=== PATIENT | female | born 1990 | race Caucasian/White ===

== ENCOUNTER 2020-12-24 01:29 | Emergency (ER) | payer OTHER, SELFPAY ==
--- NOTE | ~2020-12-24 | CT_ITS ---
EXAMINATION: CT abdomen pelvis w con EXAM DATE: 12/24/2020 03:31 INDICATION: Epigastric pain. Vomiting. TECHNIQUE: Spiral CT of the abdomen and pelvis was performed following intravenous injection of 100 m L Omnipaque 350. Axial, coronal and sagittal images of the abdomen and pelvis were reviewed. The do se-length product (DLP) for this examination was 506.51 mGy-cm. The exposure was tailored according to patient size (auto mA exposure control), and iterative reconstruction (ASIR) was used as additiona l dose reduction technique. There is no prior study for comparison. FINDINGS: The liver, spleen, adrenal glands and pancreas are unremarkable. There are gallstones with in an otherwise unremarkable gallbladder. Common bile duct upper limits of normal in size. No intrahe patic biliary duct dilation. Portal and splenic veins are patent. Kidneys enhance symmetrically. T here is no hydronephrosis. Right ovary has a 4.4 cm cystic lesion likely physiologic or hemorrhagic cyst. Uterus is unremarkable. The bladder is unremarkable. There is no retroperitoneal or pelvic l ymphadenopathy. There are no findings to suggest appendicitis. Mild edema of the distal esophageal wall could be eso phagitis. There is expected amount of colonic stool. No free intraperitoneal gas. The heart is n ormal in size. There are no pericardial or pleural effusions. There is left lower lobe granuloma. There are no osteoblastic or osteolytic lesions identified. IMPRESSION: 1. Right ovarian cystic lesion likely hemorrhagic or physiologic follicle. 2. Cholelithiasis. 3. Possible esophagitis Reviewed, dictated and finalized at location G.
[2020-12-24 01:33] VITALS: BP 141/94; PULSE 85; RESP 16; TEMP 36.1; O2SAT 100
--- NOTE | 2020-12-24 01:56 | ED.GENADULT ---
HPI - General Adult General Chief complaint: Abdominal Pain Stated complaint: abd pain Time Seen by Provider: 12/24/20 01:45 History of Present Illness HPI narrative: Patient 30-year-old female presents the emergency department with chief complaint of abdominal pain nausea and vomiting. Patient reports that she has history of problems with her gallbladder and reports that this evening she ate some ribs and then started having epigastric discomfort and had several episodes of vomiting. Patient states that symptoms are improved after she vomited in the emergency department denies fever or chills patient denies prior abdominal surgery. Review of Systems Review of Systems: A 10 system review of systems was completed on the patient and is negative except for what is stated in the HPI. Nursing and ancillary documentation was reviewed. Exam Narrative: GENERAL: Well-appearing, well-nourished, and in no acute distress. HEAD: Normocephalic, atraumatic. EYES: PERRLA and EOMI. ENT: Nares clear, no rhinorrhea or epistaxis. Mucous membranes moist. NECK: Supple. CHEST: Clear to auscultation. No respiratory distress. HEART: Regular rate and rhythm. No murmur heard. Normal peripheral pulses. ABDOMEN: Soft, tender to palpation in the epigastric region, nondistended, normal active bowel sounds. EXTREMITIES: Normal range of motion. No edema. SKIN: Warm, dry, no rash. NEURO: No focal deficits. Alert and oriented x3. PSYCH: Normal mood and affect. Course Vital Signs Vital signs: Vital Signs Temperature 36.1 C L 12/24/20 01:33 Pulse Rate 85 12/24/20 01:33 Respiratory Rate 16 12/24/20 01:33 Blood Pressure 141/94 H 12/24/20 01:33 Pulse Oximetry 100 12/24/20 01:33 Temperature 36.1 C L 12/24/20 01:33 Pulse Rate 68 12/24/20 05:03 Respiratory Rate 18 12/24/20 05:03 Blood Pressure 108/70 12/24/20 05:03 Pulse Oximetry 100 12/24/20 05:03 Medical Decision Making Vital Signs Vital Signs: Vital Signs Temperature 36.1 C L 12/24/20 01:33 Pulse Rate 85 12/24/20 01:33 Respiratory Rate 16 12/24/20 01:33 Blood Pressure 141/94 H 12/24/20 01:33 Pulse Oximetry 100 12/24/20 01:33 Temperature 36.1 C L 12/24/20 01:33 Pulse Rate 68 12/24/20 05:03 Respiratory Rate 18 12/24/20 05:03 Blood Pressure 108/70 12/24/20 05:03 Pulse Oximetry 100 12/24/20 05:03 Lab Data Result diagrams: 12/24/20 02:07 12/24/20 02:07 Labs: Lab Results 12/24/20 12/24/20 12/24/20 Range/Units 02:07 02:07 02:07 WBC 13.0 H (4.5-10.0) K/mm3 RBC 4.38 (4.2-5.4) M/mm3 Hgb 13.4 (12.0-15.0) g/dL Hct 39.5 (37.0-47.0) % MCV 90.2 (80-100) fl MCH 30.6 (26-34) pg MCHC 33.9 (32-36) g/dl RDW 10.9 L (11.5-14.5) % Plt Count 252 (150-375) k/mm3 MPV 9.7 (7.4-10.4) fl Immature Gran % (Auto) 0.2 (0-0.5) % Neut % (Auto) 59.9 (45.5-73.1) % Lymph % (Auto) 33.0 (18.3-44.2) % [place] % (Auto) 5.7 (2.6-8.5) % Eos % (Auto) 1.0 (0-4.4) % Baso % (Auto) 0.2 (0.2-1.2) % Lymph # (Auto) 4.28 H (0.9-3.2) K/mm3 [place] # (Auto) 0.7 H (0.1-0.6) K/mm3 Eos # (Auto) 0.1 (0-0.3) K/mm3 Baso # (Auto) 0.0 (0.0-0.1) K/mm3 Abs Immat Gran (auto) 0.03 (0.00-0.031) K/mm3 Absolute Neuts (auto) 7.8 H (1.3-6.7) K/mm3 Absolute Nucleated RBC 0.0 (0.0-0.012) K/mm3 Nucleated RBC % 0.0 (0.0-0.2) % Sodium 142 (137-145) mmol/L Potassium 3.7 (3.4-5.0) mmol/L Chloride 103 (98-107) mmol/L Carbon Dioxide 30 (22-30) mmol/L Anion Gap 9 (8-16) mmol/L BUN 15 (7-17) mg/dL Creatinine 1.10 H (0.7-1.0) mg/dL Estim Creat Clear Calc 68 ml/min Estimated GFR 58 L (59 - ) Glucose 122 H (65-110) mg/dL Lactic Acid 1.1 (0.7-2.1) mmol/L Calcium 9.3 (8.4-10.2) mg/dL Total Bilirubin 0.4 (0.2-1.3) mg/dL AST 29 (14-36) U/L ALT 26 (4-35) U/L Alkaline Phosphatase 73 (
[2020-12-24 02:14] LABS: Basophils Percent Auto 0.2 % (0.2-1.2); Eosinophils Absolute Auto 0.1 K/mm3 (0-0.3); Hematocrit 39.5 % (37.0-47.0); Hemoglobin 13.4 g/dL (12.0-15.0); Immature Granulocyte Absolute 0.03 K/mm3 (0.00-0.031); Immature Granulocyte Percent A 0.2 % (0-0.5); Lymphocytes Absolute Auto 4.28 K/mm3 (0.9-3.2); Mean Corpuscular HGB Conc 33.9 g/dl (32-36); Mean Corpuscular Hemoglobin 30.6 pg (26-34); Mean Corpuscular Volume 90.2 fl (80-100); Mean Platelet Volume 9.7 fl (7.4-10.4); Monocytes Absolute Auto 0.7 K/mm3 (0.1-0.6); Monocytes Percent Auto 5.7 % (2.6-8.5); Neutrophils Absolute Auto 7.8 K/mm3 (1.3-6.7); Neutrophils Percent Auto 59.9 % (45.5-73.1); Platelet Count Result 252 k/mm3 (150-375); Red Blood Count 4.38 M/mm3 (4.2-5.4); Red Cell Distribution Width 10.9 % (11.5-14.5)
[2020-12-24] MEDS: SODIUM CHLORIDE 0.9% IV 1,000 ML 999 ML IV CONT ×2 (02:20→05:13)
[2020-12-24] MEDS: PANTOPRAZOLE SODIUM IV 40 MG VIAL IV PUSH (02:20)
[2020-12-24] MEDS: ONDANSETRON INJ 4 MG/2 ML VIAL IV PUSH ×3 (02:20→05:13)
[2020-12-24] MEDS: MORPHINE SULFATE (*CRX) 4 MG/ML INJ IV PUSH ×2 (02:20→03:23)
[2020-12-24 02:24] LABS: Alanine Aminotransferase 26 U/L (4-35); Albumin Level 4.4 g/dL (3.5-5.1); Alkaline Phosphatase 73 U/L (38-126); Anion Gap 9 mmol/L (8-16); Aspartate Amino Transferase 29 U/L (14-36); Bilirubin,Total 0.4 mg/dL (0.2-1.3); Blood Urea Nitrogen 15 mg/dL (7-17); Calcium 9.3 mg/dL (8.4-10.2); Carbon Dioxide 30 mmol/L (22-30); Chloride 103 mmol/L (98-107); Estimated CRCL calculation 68 ml/min; Estimated Glomerular Filt Rate 58; Glucose 122 mg/dL (65-110); Lactic Acid Reflex 1.1 mmol/L (0.7-2.1); Lipase 65 U/L (23-300); Potassium 3.7 mmol/L (3.4-5.0); Sodium 142 mmol/L (137-145)
[2020-12-24 03:37] VITALS: BP 105/75; PULSE 91; RESP 20; O2SAT 100
[2020-12-24 04:11] LABS: Add Urine Microscopic? YES; Appearance Urine Cloudy (Clear); Bacteria Urine Trace /hpf; Bilirubin Urine Negative (Negative); Blood Urine Negative (Negative); Color Urine Yellow (Yellow); Glucose Urine UA Negative (Negative); Ketones Urine Negative (Negative); Leukocyte Esterase Ur 1+ LEU/UL (Negative); Mucus Urine Rare /lpf; Nitrate Urine Negative (Negative); Protein Urine 1+ mg/dL (Negative); Specific Grav Ur 1.027 (1.001-1.035); Squamous Epithelial Cell Urine Many /hpf (Few)
[2020-12-24 05:03] VITALS: BP 108/70; PULSE 68; RESP 18; O2SAT 100
[2020-12-24 06:35] VITALS: BP 136/78; PULSE 76; RESP 18; O2SAT 100
== END 2020-12-24 06:37 | disposition home or self-care (01) ==
PROVIDERS: Emergency Provider Emergency Medicine; PCP Nurse Practitioner
DX: K80.50 Calculus of bile duct without cholangitis or cholecystitis without obstruction (principal)
CPT/HCPCS: 36415; 74177; 80053; 81001; 81025; 83605; 83690; 85025; 96361; 96374; 96375; 96376; 99284; C9113; J2270; J2405; J7030; Q9967

== ENCOUNTER 2021-01-22 12:25 | Outpatient (CLI) | payer OTHER, SELFPAY ==
[2021-01-22 14:34] LABS: Alanine Aminotransferase 21 U/L (4-35); Albumin Level 4.8 g/dL (3.5-5.1); Alkaline Phosphatase 73 U/L (38-126); Amylase 93 U/L (30-110); Aspartate Amino Transferase 25 U/L (14-36); Bilirubin,Total 0.6 mg/dL (0.2-1.3); Lipase 60 U/L (23-300)
== END 2021-01-22 12:26 | disposition home or self-care (01) ==
LOC: ANHSURGERY 12:29
PROVIDERS: PCP Nurse Practitioner; Visit Provider Surgery
DX: Z01.812 Encounter for preprocedural laboratory examination (principal); K80.10 Calculus of gallbladder with chronic cholecystitis without obstruction
CPT/HCPCS: 36415; 80076; 82150; 83690; 86850; 86900; 86901

== ENCOUNTER 2021-01-23 00:28 | Day surgery (SDC) | payer OTHER, SELFPAY ==
[2021-01-20 08:22] VITALS: BMI 28.3
[2021-01-23] VITALS (10 sets, daily range): BP systolic 95–130; BP diastolic 58–88; PULSE 60–106; RESP 10–16; TEMP 36.2–36.9; O2SAT 97–100
[2021-01-23] MEDS: ACETAMINOPHEN 500 MG TABLET 1000 MG PO (09:16)
[2021-01-23] MEDS: LACTATED RINGERS 1,000 ML 30 ML IV CONT ×2 (09:16→11:48)
[2021-01-23] MEDS: KETOROLAC 15 MG/ML VIAL (*BKC) IV PUSH (09:19)
--- NOTE | 2021-01-23 10:21 | WPDHPUPDATE1 ---
History and Physical Update Update Date/Time: 01/23/21 10:21 History and Physical has been reviewed, including an updated exam of the patient. There are NO changes in the patient's condition. Risks, benefits, and alternatives have been discussed and questions answered. Patient agrees to proceed with procedure.
--- NOTE | 2021-01-23 10:39 | WPDANESEPPF ---
Anes - Initial Pre Proc Eval Procedure: Operation Date: 01/23/21 10:30 Proposed Procedures p Laparoscopic Cholecystectomy - Tejinder Kat MD Date/Time: 01/23/21 10:39 Surgeon: Tejinder Kat MD Pre Op Diagnosis: chronic cholecystitis with stones Patient Data Age: 30 Gender: F Height: 1.65 m Weight: 77.7 kg Last Vital Signs Temp 36.9 C 01/23/21 09:30 Pulse 64 01/23/21 09:30 Resp 16 01/23/21 09:30 BP 105/69 01/23/21 09:30 Pulse Ox 100 01/23/21 09:30 Allergies Allergy/AdvReac Type Severity Reaction Status Date / Time No Known Allergies Allergy Verified 01/23/21 08:33 Home Medications Medication Instructions Recorded Confirmed Type No Home Medications 01/20/21 01/23/21 History Patient hx anesthesia problems: none Family hx anesthesia problems: none Results Review: All pre-operative results and documents have been reviewed as part of the pre-operative evaluation. 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 Informed Consent: The patient's anesthetic plan and its attendant risks and benefits were discussed with the patient/family/POA. Questions were solicited and answers provided to the satisfaction of the patient/family/POA.
[2021-01-23] MEDS: ceFAZolin 2 GM/D5W 50 ML 2 GM/50 ML BAG IVPB (10:45)
[2021-01-23] MEDS: BUPIVACAINE HCL 0.5% PF 30 ML VIAL INFILTRATE (10:45)
--- NOTE | 2021-01-23 10:45 | WPDHPUPDATE1 ---
History and Physical Update Update Date/Time: 01/23/21 10:45 History and Physical has been reviewed, including an updated exam of the patient. There are NO changes in the patient's condition. Risks, benefits, and alternatives have been discussed and questions answered. Patient agrees to proceed with procedure.
--- NOTE | 2021-01-23 12:02 | W.PM.PROC2 ---
Procedure Note - Detailed Date of Procedure 01/23/21 Pre-op Diagnosis chronic cholecystitis with stones Post-op Diagnosis same Procedure Performed Laparoscopic cholecystectomy Surgeon Tejinder Kat MD Steward/Stewardess Third Alan GAONA Anesthesia general and local (0.5% MARCAINE) Indications Patient has right upper quadrant postprandial pain associated with vomiting and nausea. She has gallstones on imaging. She is taken to surgery now for laparoscopic cholecystectomy. Findings Mild chronic inflammation, stones noted in the gallbladder. No biliary ductal dilatation or liver abnormalities. Description of Procedure Patient was taken to surgery and induced into general anesthesia. The abdomen is prepped draped. Trocars were placed in the usual fashion using 0.5% Marcaine and applied Medical optical trocars. A 5 mm camera was used. The gallbladder was decompressed with a laparoscopic aspirator. The cholecystotomy was closed with a Vicryl endoloop. The gallbladder was then retracted anterosuperiorly. Dissection was carried out in the cholecystohepatic triangle. The cystic duct and cystic artery were dissected very clearly. The gallbladder was dissected off the liver at its lower 3rd. Critical view was achieved. We then securely clipped and divided the cystic duct and cystic artery. Gallbladder was then further dissected from its remaining peritoneal attachments to the liver. No entry into the liver or the gallbladder occurred. Gallbladder was then placed in an Endo-Catch bag and retrieved through the 10 11 epigastric trocar site. We then replaced the epigastric trocar reviewed the gallbladder fossa and right upper quadrant. Was no evidence of bleeding or bile leakage. All looked quite good. We evacuated CO2 and removed the trocar sleeves. Skin wounds were closed with subcuticular 4-0 Monocryl skin suture. The wounds were dressed with Exofin surgical adhesive. Patient was awakened and taken to recovery in good condition. Sponge and needle counts were correct x2. Estimated Blood Loss -5.0 Drains No Packing No Pathology yes (Gallbladder) Complications No immediate complications Condition stable Disposition PACU
[2021-01-23] MEDS: SCOPOLAMINE 1.5 MG PATCH TRANSDERM (12:47)
[2021-01-23] MEDS: ONDANSETRON INJ 4 MG/2 ML VIAL IV PUSH (12:50)
--- NOTE | 2021-01-23 13:44 | SUR.PHASEII ---
2954 patient tearful states hard to breath room air sat 100 reassured by nurse then seem better.
[2021-01-23] MEDS: oxyCODONE HCL (*CRX) 5 MG TAB IR PO (14:11)
[2021-01-23] MEDS: HALOPERIDOL LACTATE 5 MG/ML VIAL 1 MG IV PUSH (14:11)
== END 2021-01-23 14:25 | disposition home or self-care (01) ==
PROVIDERS: PCP Nurse Practitioner; Visit Provider Surgery
PROC: 0FT44ZZ Resection of Gallbladder, Percutaneous Endoscopic Approach (ICD-10-PCS; CPT 47562; principal; 2021-01-23 10:30)
DX: K81.1 Chronic cholecystitis (principal); F17.210 Nicotine dependence, cigarettes, uncomplicated
CPT/HCPCS: 47562; 88304; A9270; C1713; J0690; J1100; J1630; J1885; J2250; J2405; J2704; J2710; J3010; J7120

== ENCOUNTER 2021-04-03 11:31 | Outpatient (CLI) | payer OTHER, SELFPAY ==
--- NOTE | ~2021-04-03 | US_ITS ---
US abdomen limited INDICATION: Upper abdominal pain PROCEDURE: Realtime right upper abdominal ultrasound. COMPARISON: No prior studies for comparison. FINDINGS: The pancreas is normal without focal mass or pancreatic ductal dilation. Liver echotexture is normal without focal mass or intrahepatic biliary dilatation. There is normal directional flow i n the portal vein. Gallbladder is surgically absent. Common bile duct measures 5 mm. IMPRESSION: 1: Unremarkable limited abdominal ultrasound postcholecystectomy. Reviewed, dictated and finalized at location A. TURNER
--- NOTE | ~2021-04-03 | NM_ITS ---
EXAMINATION: NM hepatobiliary wo pharm DATE: 04/03/2021 13:23 INDICATION: Upper abdominal pain status post cholecystectomy. COMPARISON: CT abdomen and pelvis 12/24/2020, ultrasound 04/03/2021 TECHNIQUE: 4.7 mCi Tc-99m mebrofenin (Choletec) was administered intravenously. Scintigraphic images of the abdomen were obtained for one hour. FINDINGS: There is normal clearance of radiotracer from the blood pool. There is homogeneous tracer u ptake by the liver. Activity progresses to the bowel. IMPRESSION: 1. No bile leak. Reviewed, dictated and finalized at location A. NT OPERATIONS MANAGER IMPRESSION: 1. No bile leak.
== END 2021-04-03 11:32 | disposition home or self-care (01) ==
LOC: ANHIMG 11:40
PROVIDERS: PCP Nurse Practitioner; Visit Provider Surgery
DX: R10.10 Upper abdominal pain, unspecified (principal); Z90.49 Acquired absence of other specified parts of digestive tract
CPT/HCPCS: 76705; 78226; A9537

== ENCOUNTER 2022-03-26 14:07 | Emergency (ER) | payer OTHER, SELFPAY ==
[2022-03-26 14:14] VITALS: BP 126/79; PULSE 85; RESP 18; TEMP 36.9; O2SAT 98
[2022-03-26] MEDS: ONDANSETRON HCL ODT 4 MG TABLET SUBLINGUAL (14:58)
--- NOTE | 2022-03-26 16:47 | ED.NAVMDI ---
HPI - Nausea/Vomiting/Diarrhea General Chief complaint: Nausea/Vomiting/Diarrhea Stated complaint: Ear Ringing/Light Headed Time Seen by Provider: 03/26/22 16:47 Source: patient Mode of arrival: ambulatory Limitations: no limitations History of Present Illness HPI Narrative: 32 year old female who presents to [facility] care with complaints of feeling weak yesterday with ringing in her ears and today she has had episodes of feeling faint light headed. Patient denies any fevers, chills or body aches. She reports that she has been experiencing some nausea with episode of vomiting, denies diarrhea or abdominal urbina. MD elicited complaint: nausea, vomiting and other (weakness) Onset (ago): day(s) (day 2 of symptoms) Description of vomiting: food contents Associated abdominal pain: No Treatment prior to arrival: other (none) Related Data Allergies Allergy/AdvReac Type Severity Reaction Status Date / Time No Known Allergies Allergy Verified 03/26/22 16:26 Review of Systems Review of Systems: CONSTITUTIONAL: Denies fever, chills, or sweats. EYES: Denies visual changes, redness, or discharge. ENT: Denies rhinorrhea, congestion, sore throat, or otalgia.reports ringing in her ears CARDIOVASCULAR: Denies chest pain, palpitations, or edema. RESPIRATORY: Denies cough or dyspnea. GASTROINTESTINAL: Denies abdominal pain,positive for nausea, vomiting, no diarrhea. GENITOURINARY: Denies dysuria or hematuria. SKIN: Denies rash or itching. MUSCULOSKELETAL: Denies back pain, joint pain, or myalgia. NEUROLOGIC: Denies headache, numbness, reports weakness PSYCHIATRIC: Reports history of anxiety or depression. 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 There is no relevant family history pertinent to the presenting complaint Exam Narrative: GENERAL: Well-appearing, well-nourished, and in no acute distress. HEAD: Normocephalic, atraumatic. EYES: PERRLA and EOMI. ENT: Nares clear, no rhinorrhea or epistaxis. Mucous membranes moist.TM's normal with good light reflex, throat pink with no lesions or swelling NECK: Supple.no lymphadenopathy CHEST: Clear to auscultation. No respiratory distress.SAO2 98% on room air HEART: Regular rate and rhythm. No murmur heard. Normal peripheral pulses. ABDOMEN: Soft, nontender, nondistended, normal active bowel sounds. EXTREMITIES: Normal range of motion. No edema. SKIN: Warm, dry, no rash. NEURO: No focal deficits. Alert and oriented x3. Course Course Emergency Course: Patient is aware of diagnosis, understands and agrees to treatment plan.? Anticipatory guidance given.? Patient agrees to follow-up as directed and is aware of reasons to seek care at the emergency department. Portions of this record may have been created with voice recognition software Level of Care: Express Care Visit Vital Signs Vital signs: Vital Signs Temperature 36.9 C 03/26/22 14:14 Pulse Rate 85 03/26/22 14:14 Respiratory Rate 18 03/26/22 14:14 Blood Pressure 126/79 03/26/22 14:14 Pulse Oximetry 98 03/12
== END 2022-03-26 16:50 | disposition home or self-care (01) ==
PROVIDERS: Emergency Provider Registered Nurse
DX: B34.9 Viral infection, unspecified (principal); Z20.822 Contact with and (suspected) exposure to COVID-19; F17.210 Nicotine dependence, cigarettes, uncomplicated; J45.909 Unspecified asthma, uncomplicated
CPT/HCPCS: 87426; 87804; 99213; A9270; C9803; G0463

== ENCOUNTER 2023-01-02 12:19 | Emergency (ER) | payer BC, SELFPAY ==
[2023-01-02 12:26] VITALS: BP 139/82; PULSE 86; RESP 20; TEMP 37.1; O2SAT 99
--- NOTE | 2023-01-02 12:54 | ED.URI ---
HPI - URI/Sore Throat General Chief Complaint: Upper Respiratory Infection Stated Complaint: sore throat,chills,fatigue,dry cough Time Seen by Provider: 01/02/23 12:22 Source: patient Mode of arrival: ambulatory Limitations: no limitations History of Present Illness HPI Narrative: 32-year-old female presents to [facility] with complaints of body aches, chills, sore throat, fatigue and cough since last night. Patient reports that a co-worker tested positive for COVID 2 days ago. Patient denies fever, nausea vomiting, diarrhea, shortness of breath or wheezing MD elicited complaint: cough and sore throat Onset (ago): hour(s) (12) Severity: mild Able to tolerate fluids by mouth: Yes Exacerbating factors: swallowing Context: sick contacts Related Data Home Medications Medication Instructions Recorded Confirmed No Home Medications 01/02/23 01/02/23 Allergies Allergy/AdvReac Type Severity Reaction Status Date / Time No Known Allergies Allergy Verified 01/02/23 12:34 Review of Systems Constitutional: Constitutional: Reports chills, Reports fatigue, Denies fever(s) and Denies weakness ENT: Denies dysphagia, Denies vertigo, Denies dizziness, Denies epistaxis, Denies nasal congestion and Reports sore throat Cardiovascular: Cardiovascular: Denies chest pain Respiratory: Respiratory: Reports cough, Denies dyspnea and Denies wheezing Gastrointestinal: Gastrointestinal: Denies diarrhea, Denies nausea and Denies vomiting Integumentary/Breasts: Skin/Breast: Denies rash Neurologic: Denies dizziness, Denies syncope and Denies headache(s) [facility] Past Medical History Medical History Anxiety Asthma Surgical History Surgical History History of laparoscopic cholecystectomy 01/23/21 Family History Family History Father Hypertension Sibling Testicular cancer Social History Social History Years smoked: 16 Smoking status: Current every day smoker Tobacco type: cigarettes Alcohol intake: current Alcohol use details: RARE Substance use: never Substance use type: does not use Living arrangements: with family Occupation/Education: occupation 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 There is no relevant family history pertinent to the presenting complaint. Exam HENMT: Head: normal to inspection Ears: external ears normal, TM's normal bilaterally and EAC's normal Face/Nose/Sinus: Normal external nose present Mouth: Yes Normal oral and palatal mucosa present and Yes moist mucous membranes Teeth and gingiva: dentition normal and abnormal tooth and associated gingiva Throat: posterior oropharynx normal and uvula midline Eyes: Conjunctivae: conjunctivae normal Neck: Neck: normal visual inspection Resp: Effort & Inspection: normal respiratory effort and not labored Auscultation: clear to auscultation bilaterally, no crackles, no rales, no rhonchi and no wheezes Cardio: Rate: regular rate Rhythm: regular rhythm Heart sounds: no murmurs Skin: General skin exam: normal color Rashes: no rashes Neuro: Speech: normal speech Gait exam (Neuro): Normal gait present Psych: Affect: normal affect Attitude: cooperative Course Course Level of Care: Express Care Visit Vital Signs Vital signs: Vital Signs Temperature 37.1 C 01/02/23 12:26 Pulse Rate 86 01/02/23 12:26 Respiratory Rate 20 01/02/23 12:26 Blood Pressure 139/82 01/02/23 12:26 Pulse Oximetry 99 01/02/23 12:26 Oxygen Delivery Room Air 01/02/23 12:26 Temperature 37.1 C 01/02/23 12:26 Pulse Rate 86 01/02/23 12:26 Respir
== END 2023-01-02 13:12 | disposition home or self-care (01) ==
PROVIDERS: Emergency Provider Nurse Practitioner Family
DX: B34.9 Viral infection, unspecified (principal); Z20.822 Contact with and (suspected) exposure to COVID-19; F17.210 Nicotine dependence, cigarettes, uncomplicated; J45.909 Unspecified asthma, uncomplicated
CPT/HCPCS: 87081; 87426; 87880; 99213; C9803; G0463

== ENCOUNTER 2023-01-30 08:01 | Emergency (ER) | payer BC, SELFPAY ==
[2023-01-30 08:08] VITALS: BP 128/75; PULSE 88; RESP 18; TEMP 36.6; O2SAT 97
--- NOTE | 2023-01-30 08:15 | ED.GENADULT ---
HPI - General Adult General Chief complaint: Unspecified Stated complaint: something in throat Time Seen by Provider: 01/30/23 08:16 Source: patient, RN notes reviewed and old records reviewed Mode of arrival: ambulatory Limitations: no limitations History of Present Illness HPI narrative: 32 year old female who presents to [facility] care with complaints of having lesion in the back of her throat on the left side near tonsil which she noticed yesterday.Patient reports that area is sore and was increasingly sore yesterday. Patient had oral sex with this male who also had sex with another girl who informed her that she had a HIV/STD scare but then stated she was negative. Patient concerned for STD/HIV exposure and went thru [facility] and got an order for a HIV/5 STD panel which she had done at [employer] this morning. Patient denies any fevers chills or sweats no sinus congestion or drainage, patient does reports history of herpes but has not had an outbreak in a long time, did have Gardasil immunizations as teen X3.Patient reports that she had COVID one month ago. complaint: lesion in the back of the throat left side near tonsil Onset (ago): day(s) (1) Location: mouth (throat) Severity scale (1-10): 2 Treatments prior to arrival: none Related Data Home Medications Medication Instructions Recorded Confirmed No Home Medications 01/02/23 01/30/23 Allergies Allergy/AdvReac Type Severity Reaction Status Date / Time No Known Allergies Allergy Verified 01/30/23 08:15 Review of Systems Review of Systems: CONSTITUTIONAL: Denies fever, chills, or sweats. EYES: Denies visual changes, redness, or discharge. ENT: Denies rhinorrhea, congestion,some sore throat with concern for white flat lesion to left throat area near tonsil, no otalgia. CARDIOVASCULAR: Denies chest pain, palpitations, or edema. RESPIRATORY: Denies cough or dyspnea. GASTROINTESTINAL: Denies abdominal pain, nausea, vomiting, or diarrhea. GENITOURINARY: Denies dysuria or hematuria. SKIN: Denies rash or itching. MUSCULOSKELETAL: Denies back pain, joint pain, or myalgia. NEUROLOGIC: Denies headache, numbness, or weakness. PSYCHIATRIC: Denies anxiety or depression. All systems reviewed & are unremarkable except as noted in HPI and below PMFSH Past Medical History Medical History (Updated 01/30/23 @ 09:18 by Edna Nath NP) Anxiety Asthma Herpes genitalis in women Surgical History Surgical History History of laparoscopic cholecystectomy 01/23/21 Family History Family History Father Hypertension Sibling Testicular cancer Social History Social History (Updated 01/30/23 @ 09:22 by Edna Nath NP) Years smoked: 16 Smoking status: Current every day smoker Tobacco type: cigarettes Alcohol intake: current Alcohol use details: RARE Substance use: never Substance use type: does not use Education: Bachelor's Degree Living arrangements: with family Occupation/Education: occupation 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 There is no relevant family history pertinent to the presenting complaint Exam Narrative: GENERAL: Well-appearing, well-nourished, and in no acute distress. HEAD: Normocephalic, atraumatic. EYES: PERRLA and EOMI. ENT: Nares clear, no rhinorrhea or epistaxis. Mucous membranes moist.TM's normal with good light reflex, no tonsil redness, small 0.5cm diameter whitish flat lesion to back of throat near left tonsil with some soreness. NECK: Supple.no lymphadenopathy CHEST: Clear to auscultation. No respiratory distress.SAO2 97% on room air HEART: Regular rate and rhythm. No murmur heard. Normal peripheral pulses.
== END 2023-01-30 09:15 | disposition home or self-care (01) ==
PROVIDERS: Emergency Provider Registered Nurse
DX: K13.70 Unspecified lesions of oral mucosa (principal); F17.210 Nicotine dependence, cigarettes, uncomplicated; J45.909 Unspecified asthma, uncomplicated
CPT/HCPCS: 87081; 87255; 87880; 99213; G0463

== ENCOUNTER 2023-05-14 16:58 | Emergency (ER) | payer BC, SELFPAY ==
--- NOTE | ~2023-05-14 | XR_ITS ---
EXAMINATION: XR abdomen/kub 1V DATE: 05/14/2023 18:16 INDICATION: Left flank pain TECHNIQUE: A supine view of the abdomen on 2 radiographs was obtained. COMPARISON: None. FINDINGS: Cholecystectomy clips in right upper quadrant. No suspicious calcifications in the abdomen or pelvis. Normal bowel gas pattern. Lung bases are clear. Heart size is normal. Bones and soft tissues are unr emarkable. IMPRESSION: 1. Normal bowel gas pattern. No evident nephrolithiasis. Reviewed, dictated and finalized at location A. L [facility]
[2023-05-14 17:05] VITALS: BP 133/70; PULSE 102; RESP 18; TEMP 37.6; O2SAT 99
--- NOTE | 2023-05-14 17:08 | PC.NURSE ---
in br to obtain ua spec.
--- NOTE | 2023-05-14 17:58 | ED.FEMALEGU ---
HPI - Female Genitourinary General Chief complaint: Urogenital-Female Stated complaint: Urinary Problem/Low Back Pain/Runny Nose/Chills Time Seen by Provider: 05/14/23 17:58 Source: patient Mode of arrival: ambulatory Limitations: no limitations History of Present Illness HPI Narrative: 33-year-old female presents with complaint frequency, urgency, left-sided back pain for approximately 1 week. Also reports that she has been sick with, nasal congestion, scratchy throat for 1 week. Today reports chills, fatigue, worsening left back pain. Denies nausea vomiting diarrhea. Afebrile. All systems reviewed and negative except as noted above. Related Data Allergies Allergy/AdvReac Type Severity Reaction Status Date / Time No Known Allergies Allergy Verified 05/14/23 17:05 Review of Systems Review of Systems: CONSTITUTIONAL: Denies fever, chills, or sweats. EYES: Denies visual changes, redness, or discharge. ENT: Reports rhinorrhea, congestion, sore throat. Denies otalgia. CARDIOVASCULAR: Denies chest pain, palpitations, or edema. RESPIRATORY: Denies cough or dyspnea. GASTROINTESTINAL: Denies abdominal pain, nausea, vomiting, or diarrhea. GENITOURINARY: Denies dysuria or hematuria. Reports urinary frequency, urgency, flank pain. SKIN: Denies rash or itching. MUSCULOSKELETAL: Denies back pain, joint pain, or myalgia. NEUROLOGIC: Denies headache, numbness, or weakness. PSYCHIATRIC: Denies anxiety or depression. All other systems reviewed are negative, except as documented in HPI. FOR[facility]LY [facility] Past Medical History Medical History (Updated 05/14/23 @ 19:04 by Renetta Stallings NP) Anxiety Asthma Herpes genitalis in women Surgical History Surgical History History of laparoscopic cholecystectomy 01/23/21 Family History Family History Father Hypertension Sibling Testicular cancer Social History Social History (Updated 01/30/23 @ 09:22 by Edna Nath NP) Years smoked: 16 Smoking status: Current every day smoker Tobacco type: cigarettes Alcohol intake: current Alcohol use details: RARE Substance use: never Substance use type: does not use Education: Bachelor's Degree Living arrangements: with family Occupation/Education: occupation 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 There is no relevant family history pertinent to the presenting complaint. Exam Narrative: GENERAL: This is a well-nourished, well-developed patient, in no apparent distress. HEAD: normocephalic, atraumatic. EYES: PERRL. Sclera clear/white. Vision is grossly intact. EARS: External ears normal, auditory canals clear and without drainage, TMs normal without perforation. Hearing grossly intact. NOSE: External nose normal with moderate congestion, clear nasal drainage with erythema to nares. THROAT: Mucous membranes moist, erythema with clear postnasal drainage. NECK: Neck supple, non-tender without lymphadenopathy, masses or thyromegaly. CARDIOVASCULAR: Regular rate and rhythm without murmurs, gallops, or rubs. RESPIRATORY: Clear to auscultation. Breath sounds equal bilaterally. No wheezes, rales, or rhonchi. SKIN: warm, Dry, intact with no suspicious lesions or rash, good texture and turgor. NEURO: awake, alert, and oriented to person, place and time. There were no obvious focal neurologic abnormalities. EXTREMITIES: No joint tenderness, effusion, or edema noted. BACK: No CVA tenderness. Course Course Level of Care: Express Care Visit Vital Signs Vital signs: Vital Signs Temperature 37.6 C 05/14/23 17:05 Pulse Rate 102 H 05/14/23 17:05 Respiratory Rate 18 05/14/23 17:05 Blood Pressure 133/70 02
== END 2023-05-14 19:09 | disposition home or self-care (01) ==
PROVIDERS: Emergency Provider Nurse Practitioner Family
DX: N39.0 Urinary tract infection, site not specified (principal); J01.90 Acute sinusitis, unspecified; Z20.822 Contact with and (suspected) exposure to COVID-19; F17.210 Nicotine dependence, cigarettes, uncomplicated; J45.909 Unspecified asthma, uncomplicated
CPT/HCPCS: 74018; 81003; 87086; 87426; 87804; 99213; G0463